=== PATIENT | male | born 2000 | race Caucasian/White ===

== ENCOUNTER → 2024-04-23 09:10 | Outpatient (BNVA) | payer OTHER, SELFPAY | PROVIDERS: PCP Family Medicine; Referring Provider Family Medicine; Visit Provider Internal Medicine Cardiovascular Disease | DX: R07.9 Chest pain, unspecified (principal) | CPT/HCPCS: 93005 ==

== ENCOUNTER 2024-07-16 16:32 | Outpatient (CLI) | payer OTHER, SELFPAY ==
--- NOTE | 2024-07-16 16:43 | US_ITS ---
WS: [id number] ULTRASOUND SOFT TISSUES LEFT inguinal canal. HISTORY: INGUINAL HERNIA COMPARISON: None available. TECHNIQUE: 2-D and color Doppler imaging is submitted. Ultrasound directed to along the LEFT inguinal canal as indicated for possible hernia. There is no definite hernia identified. There is no mass or fluid along the inguinal canal. No peristalsing loops of bowel identified. US/US soft tissue/extremity [id number] IMPRESSION: No LEFT inguinal canal hernia identified by ultrasound. For continued concern c onsider CT evaluation.
== END 2024-07-16 16:33 | disposition home or self-care (01) ==
PROVIDERS: PCP Family Medicine; Visit Provider Family Medicine
DX: R10.32 Left lower quadrant pain (principal)
CPT/HCPCS: 76882

== ENCOUNTER 2024-08-04 13:28 | Outpatient (CLI) | payer OTHER, SELFPAY ==
--- NOTE | 2024-08-04 14:30 | CT_ITS ---
WS: [id number] CT ABDOMEN AND PELVIS WITH CONTRAST HISTORY: abdominal pain left inguinal hernia TECHNIQUE: Imaging performed of the abdomen and pelvis with IV contrast. Single phase imaging of the abdomen. Coronal and sagittal reformats are submitted. All CT scans at [facility] use at least one of these dose optimization techniques: automated exposure control; mA and/or kV adjustment per patient size (includes targeted exams where dose is matched to clinical indication); or iterative reconstruction. IV CONTRAST: Omnipaque 350; 100 mL IV. Oral contrast: Yes. DLP: 373.16 mGy.cm COMPARISON: None available. Lower thorax: Benign calcified granuloma RIGHT middle lobe. Heart is normal size. No hiatal hernia. Liver/biliary system: Normal size with no intrahepatic dilatation. Gallbladder: Normal. No gallstones or wall thickening. No pericholecystic fluid. Pancreas: Normal size pancreas and pancreatic duct. No adjacent inflammation. Spleen: Normal size spleen. No mass or infarct. Adrenal glands: Normal. Right kidney: Normal. Left kidney: Normal. Aorta: Normal. Lymphadenopathy: None. Free fluid: None. GI tract: Unremarkable. Abdominal wall: Tiny fat-containing umbilical hernia. No inguinal hernias. Pelvis: No free fluid or adenopathy within the pelvis. Bones: Very subtle sclerotic changes in the LEFT femoral head may indicate an area of early developing osteonecrosis. CT/CT abdomen pelvis w con* [id number] IMPRESSION: 1. No LEFT inguinal hernia. 2. Very tiny umbilical hernia contains fat only. 3. No GI tract obstruction. 4. No renal obstruction. 5. No ascites or adenopathy. 6. 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
[2024-08-04] MEDS: iohexol 350 mg/mL 500 mL Btl (per mL) PO (14:55)
[2024-08-04] MEDS: iohexol 350 mg/mL 500 mL Btl (per mL) IV (14:55)
== END 2024-08-04 13:29 | disposition home or self-care (01) ==
PROVIDERS: PCP Family Medicine; Visit Provider Surgery
DX: K46.9 Unspecified abdominal hernia without obstruction or gangrene (principal); R93.7 Abnormal findings on diagnostic imaging of other parts of musculoskeletal system; J84.10 Pulmonary fibrosis, unspecified
CPT/HCPCS: 74177

== ENCOUNTER → 2024-08-31 13:32 | Outpatient (BNVA) | payer OTHER, SELFPAY | PROVIDERS: PCP Family Medicine; Visit Provider Orthopaedic Surgery | DX: M25.552 Pain in left hip (principal) | CPT/HCPCS: 73502 ==

== ENCOUNTER 2024-11-15 06:30 | Outpatient (RCR) | payer OTHER, SELFPAY | END 2024-12-14 23:59 | disposition home or self-care (01) | LOC: SPT 06:30 | PROVIDERS: Visit Provider Family Medicine | DX: S39.011D Strain of muscle, fascia and tendon of abdomen, subsequent encounter (principal); X58.XXXD Exposure to other specified factors, subsequent encounter | CPT/HCPCS: 97161 ==